=== PATIENT | female | born 1990 | race American Indian/Alaskan Native ===

== ENCOUNTER 2020-11-29 12:42 | Emergency (ER) | payer MEDICAID ==
[2020-11-29 12:54] VITALS: BP 117/87
[2020-11-29 13:37] LABS: Basophils # (Auto) 0.1 K/mm3 (0.0-0.1); Basophils % (Auto) 1.8 % (0.0-1.8); Eosinophils # (Auto) 0.2 K/mm3 (0.0-0.4); Eosinophils % (Auto) 3.8 % (0.0-4.3); Hematocrit 32.8 % (30.3-42.9); Hemoglobin 10.6 gm/dl (10.1-14.3); Lymphocytes # (Auto) 1.3 K/mm3 (1.2-5.4); Lymphocytes % (Auto) 24.4 % (13.4-35.0); Mean Corpuscular HGB Conc 32 % (30-34); Mean Corpuscular Volume 78 fl (79-97); Monocytes # (Auto) 0.4 K/mm3 (0.0-0.8); Monocytes % (Auto) 6.9 % (0.0-7.3); Platelet Count 385 K/mm3 (140-440); Red Blood Count 4.18 M/mm3 (3.65-5.03); Red Cell Distribution Width 16.9 % (13.2-15.2)
[2020-11-29 13:51] LABS: Alanine Aminotransferase 10 units/L (7-56); Albumin 4.4 g/dL (3.9-5); Blood Urea Nitrogen 10 mg/dL (7-17); Calcium 9.8 mg/dL (8.4-10.2); Hemolysis Index 3
[2020-11-29 13:53] LABS: BUN/Creatinine Ratio 14
--- NOTE | 2020-11-29 14:18 | XRay Report ---
CHEST PA AND LATERAL VIEWS INDICATION: Chest Pain. COMPARISON: None. FINDINGS: Support devices: None. Heart: Within normal limits. Lungs/Pleura: No acute pulmonary or pleural findings. IMPRESSION: 1. No acute findings. Signer Name: Saeid Padilla MD Signed: 11/29/2020 2:13 PM Workstation Name: [id number]
--- NOTE | 2020-11-29 16:01 | Emergency Department Report ---
ED General Adult HPI - General Chief complaint: Chest Pain Stated complaint: CHEST PAIN SHOOTING PAIN LT SIDE Source: patient Mode of arrival: Ambulatory Limitations: No Limitations - History of Present Illness Initial comments: 30-year-old -[place] female presents to the emergency room complaining of intermittent chest pain for 1 week. Patient states that she started off with neck pain that radiates down her shoulder into her left arm. She was having dizziness. She reports a few days before she had a panic attack. She denies any pain at this time. Patient reports that she has had no nausea no vomiting. Recently discontinued smoking cigarettes. Currently on no control no medications no known drug allergies. Onset/Timin -: week(s) Location: chest, left, upper extremity Radiation: distal Severity scale (0 -10): 0 Quality: crushing Consistency: intermittent Improves with: none Worsens with: none Associated Symptoms: denies other symptoms Treatments Prior to Arrival: none - Related Data Previous Rx's Medication Instructions Recorded Last Taken Type Ibuprofen [Motrin 800 MG tab] 800 mg PO Q8HR PRN #30 tablet 12/11/14 Unknown Rx Mupirocin [Bactroban 2% CREAM] 1 applicatio TP TID #15 gm 12/11/14 Unknown Rx methOCARBAMOL [Robaxin TAB] 750 mg PO Q8H PRN #21 tablet 12/11/14 Unknown Rx Allergies Allergy/AdvReac Type Severity Reaction Status Date / Time No Known Allergies Allergy Verified 11/29/20 12:52 ED Review of Systems ROS: Stated complaint: CHEST PAIN SHOOTING PAIN LT SIDE Other details as noted in HPI Comment: All other systems reviewed and negative Respiratory: shortness of breath (Intermittently) Cardiovascular: chest pain (Intermittently) ED Past Medical Hx - Past Medical History Previous Medical History?: No - Surgical History Past Surgical History?: No - Social History Smoking Status: Never Smoker Substance Use Type: None - Medications Home Medications: Home Medications Medication Instructions Recorded Confirmed Last Taken Type Ibuprofen [Motrin 800 MG tab] 800 mg PO Q8HR PRN #30 tablet 12/11/14 Unknown Rx Mupirocin [Bactroban 2% CREAM] 1 applicatio TP TID #15 gm 12/11/14 Unknown Rx methOCARBAMOL [Robaxin TAB] 750 mg PO Q8H PRN #21 tablet 12/11/14 Unknown Rx ED Physical Exam - General Limitations: No Limitations General appearance: alert, in no apparent distress - Head Head exam: Present: atraumatic, normocephalic - Eye Eye exam: Present: normal appearance - ENT ENT exam: Present: mucous membranes moist - Neck Neck exam: Present: normal inspection - Respiratory Respiratory exam: Present: normal lung sounds bilaterally. Absent: respiratory distress - Cardiovascular Cardiovascular Exam: Present: regular rate, normal rhythm. Absent: systolic murmur, diastolic murmur, rubs, gallop - GI/Abdominal GI/Abdominal exam: Present: soft, normal bowel sounds - Extremities Exam Extremities exam: Present: normal inspection - Back Exam Back exam: Present: normal inspection - Neurological Exam Neurological exam: Present: alert, oriented X3 - Psychiatric Psychiatric exam: Present: normal affect, normal mood - Skin Skin exam: Present: warm, dry, intact, normal color. Absent: rash ED Course Vital Signs 11/29/20 12:48 Temperature 98.4 F Pulse Rate 80 Respiratory 20 Rate Blood Pressure 117/87 O2 Sat by Pulse 100 Oximetry ED Medical Decision Making - Lab Data Result diagrams: 11/29/20 12:59 11/29/20 12:59 - Medical Decision Making 30-year-old -[place] female presents to the emergency room complaining of intermittent chest pain for 1 week. Patient states that she started off with neck pain that radiates down her shoulder into her left arm. She was having dizziness. She reports a few days before she had a panic attack. She denies any pain at this time. Patient reports that she has had no nausea no vomiting. Recently discontinued smoking cigarettes. Currently on no control no medications no known drug allergies. The patient is resting comfortably and feeling better, is alert and in no distress. The repeat examination is unremarkable and benign. The electrocardiogram shows no signs of acute ischemia and the history, exam, diagnostic testing and current condition do not suggest that this patient is having acute myocardial infarction, significant arrhythmia, unstable angina, esophageal perforation, pulmonary embolism, aortic dissection, pneumothorax, severe pneumonia, sepsis or other significant pathology that would warrant fu rther testing, continued ED treatment, admission, or cardiology or other specialist consultation at this point. The vital signs have been stable. The patient's condition is stable and appropriate for discharge. 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 The patient and/or caregiver have expressed a clear in thorough understanding and agrees to the follow-up as instructed. Critical care attestation.: If time is entered above; I have spent that time in minutes in the direct care of this critically ill patient, excluding procedure time. ED Disposition Clinical Impression: Nonspecific chest pain Disposition: DC-01 TO HOME OR SELFCARE Is pt being admited?: No Does the pt Need Aspirin: No Condition: Stable Instructions: Nonspecific Chest Pain, Adult, [id number] Additional Instructions: All labs are within normal limits chest x-rays shows no acute abnormalities EKG is within normal limits. 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 Started on a nicotine patch for Glucotrol as this could be one of the reasons why you are having panic attacks and chest discomfort. Be sure to increase your water intake. Referrals: [facility], [email or web address] [Provider Group] - 3-5 Days Time of Disposition: 16:08
--- NOTE | 2020-12-01 12:13 | Electrocardiograph Report ---
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
== END 2020-11-29 16:31 | disposition home or self-care (01) ==
LOC: ED 12:42
DX: R07.89 Other chest pain (principal); Z79.1 Long term (current) use of non-steroidal anti-inflammatories (NSAID); Z79.899 Other long term (current) drug therapy
CPT/HCPCS: 36415; 71046; 80053; 84484; 85025; 93005